=== PATIENT | female | born 1985 | race Caucasian/White ===

== ENCOUNTER 2018-05-01 09:25 | Outpatient (CLI) | payer BC ==
--- NOTE | 2018-05-01 11:54 | RAD ---
HYSTEROSALPINGOGRAM: CLINICAL HISTORY: Infertility. Congenital uterine anomaly. COMPARISON: No prior comparisons. TECHNIQUE: Informed consent was obtained, and the patient was escorted to the procedural suite. The patient was placed on the fluoroscopy table in the supine position. A standard sterile speculum exam was done, with sterilization of the external cervical os. Subsequent cannulation of the cervical canal was per formed, and a small volume of contrast was instilled to confirm appropriate placement. Subsequently, the endometrial canal was opacified by contrast, which did reveal an abnormal morphology, with conca vity of the cephalad aspect of the endometrial canal, with two distinct uterine horns. There is part ial absence of the right fallopian tube. The left fallopian tube is patent, and there is free spill into the pelvic cavity. IMPRESSION: 1. 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 As clinically necessary, this may be further assessed with Pelvic MRI. 2. Partial absence of right fallopian tube. Telephone call of findings placed to the patient's electric motor winders assembler, Johnson Plaza D.O., at the time of ex am completion. CODE CR POS: [facility]
== END 2018-05-01 09:26 | disposition home or self-care (01) ==
LOC: RAD 09:25
PROVIDERS: ATTEND Obstetrics & Gynecology
DX: Q51.818 Other congenital malformations of uterus (principal); Z90.79 Acquired absence of other genital organ(s)
CPT/HCPCS: 58340; 74740

== ENCOUNTER 2019-01-07 16:37 | Emergency (ER) | payer BC ==
--- NOTE | 2019-01-07 17:07 | RAD ---
Left forearm 2 views HISTORY: Left arm injury. FINDINGS: Radius and ulna are intact. No acute fracture or dislocation. IMPRESSION: No acute osseous abnormalities are demonstrated.
== END 2019-01-07 17:29 | disposition home or self-care (01) ==
LOC: ERS 16:37
DX: S50.12XA Contusion of left forearm, initial encounter (principal); E03.9 Hypothyroidism, unspecified; R73.03 Prediabetes; E55.9 Vitamin D deficiency, unspecified; Z79.899 Other long term (current) drug therapy; Z79.84 Long term (current) use of oral hypoglycemic drugs; V89.2XXA Person injured in unspecified motor-vehicle accident, traffic, initial encounter